=== PATIENT | male | born 1975 | race African-American/Black ===

== ENCOUNTER 2017-03-21 06:07 | Emergency (ER) | payer SELFPAY ==
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
== END 2017-03-21 07:05 | disposition home or self-care (01) ==
LOC: SED 06:07
DX: S39.012A Strain of muscle, fascia and tendon of lower back, initial encounter (principal); I10 Essential (primary) hypertension; F17.210 Nicotine dependence, cigarettes, uncomplicated; V43.52XA Car driver injured in collision with other type car in traffic accident, initial encounter
CPT/HCPCS: 72100; 99284